=== PATIENT | male | born 1965 | race Caucasian/White ===

== ENCOUNTER → 2018-02-02 15:06 | Outpatient (CLI) | payer OTHER, SELFPAY ==
--- NOTE | 2018-02-02 | DI.MRI.S_ITS ---
PROCEDURE: MR LUMBAR SPINE WO CON INDICATIONS: LUMBAR RADICULOPATHY TECHNIQUE: Noncontrast sagittal T1 spin echo and T2 fast echo, sagittal STIR, axial T1 and T2 fast spin echo through the lumbar spine. In cases with scoliosis, additional coronal T2 fast spin echo may be performed. COMPARISON: None. FINDINGS: Image quality: Artifact is present at the level of L5-S1. Alignment and Curvature: There is normal bony alignment. Bone Marrow: Marrow is of normal overall signal. No acute vertebral body compression fractures. Spinal Cord: Conus medullaris terminates at the L1 level. Visualized cord demonstrates normal signal and size. Paraspinous Soft Tissues: No paravertebral masses. Discs: Mild desiccation is present at L4-5. L1-L2: No disc bulge, spinal stenosis or foraminal narrowing. L2-L3: Minimal disc bulge without spinal stenosis. There is trace left foraminal narrowing. Trace epidural lipomatosis as well as facet/ligamentum flavum hypertrophy.. L3-L4: Minimal disc bulge without spinal stenosis. No foraminal narrowing. Mild facet and ligamentum flavum arthropathy as well is minimal epidural lipomatosis. L4-L5: Mild disc bulge with increased T2 signal posteriorly suggestive annular fissure. Mild spinal stenosis. Mild spinal stenosis. Moderate bilateral foraminal narrowing with facet and ligamentum flavum arthropathy. L5-S1: Mild disc bulge without spinal stenosis. Minimal right foraminal narrowing with facet and ligamentum flavum arthropathy. IMPRESSION: 1. Early degenerative changes most prominent at L4-5 demonstrating a disc bulge with mild spinal stenosis and moderate bilateral foraminal narrowing. Facet arthropathy is also present. Dictated by: Klaudia Levi M.D. on 02/02/2018 at 16:24 Approved by: Klaudia Levi M.D. on 02/02/2018 at 16:43
== END ==
PROVIDERS: PCP Nurse Practitioner Family; Visit Provider Nurse Practitioner Family
DX: M51.16 Intervertebral disc disorders with radiculopathy, lumbar region (principal); M47.26 Other spondylosis with radiculopathy, lumbar region; M48.061 Spinal stenosis, lumbar region without neurogenic claudication
CPT/HCPCS: 72148